=== PATIENT | female | born 1955 | race Caucasian/White ===

== ENCOUNTER → 2018-08-03 | Outpatient (CLI) | payer MEDICARE, OTHER ==
[~2018-08-03] MED LIST: ALPRAZOLAM 0.50.5 M1; CALCIUM 500 +1 EAC5; CALCIUM OYSTER500 MG; CLONAZEPAM 1 MG1 M1; EFFEXOR XR150 MG; FISH OIL 1,001000 M1; FISHOIL; LEVOTHROID125 MCG; LEVOTHROID150 MC1; LISINOPRIL-HCT1 EAC2; MAGNESIUM250 M1; MEDROLDOSEPACK PO; MULTIVITAMINS1 EAC7; ONE-A-DAY WOMENS; PRAVACHOL40 MG; PREDNISONE 20 M20 MG PO; PRISTIQ100 MG; PROMETHAZINE-D120 ML PO; RESTORIL30 MG; VENTOLIN HFA INH8 GM IH; VITAMIN D 5050000 I1; XOPENEX HF1 UDINHALE; ZANTAC 150MG T150 M1; ZESTORETIC 20-1 EAC1; ZPAK
== END ==
LOC: M.RAD 11:45
DX: R06.02 Shortness of breath (principal); R53.83 Other fatigue

== ENCOUNTER → 2019-01-31 | Outpatient (CLI) | payer MEDICARE, OTHER | LOC: M.RAD 14:27 | DX: M47.816 Spondylosis without myelopathy or radiculopathy, lumbar region (principal); M51.36 Other intervertebral disc degeneration, lumbar region; M12.88 Other specific arthropathies, not elsewhere classified, other specified site; M41.86 Other forms of scoliosis, lumbar region; I70.0 Atherosclerosis of aorta ==

== ENCOUNTER → 2019-02-07 | Outpatient (CLI) | payer MEDICARE, OTHER | LOC: M.RAD 14:16 | DX: M47.812 Spondylosis without myelopathy or radiculopathy, cervical region (principal); M54.6 Pain in thoracic spine; R29.890 Loss of height ==

== ENCOUNTER → 2019-07-20 | Outpatient (CLI) | payer MEDICARE, OTHER | LOC: M.RAD 11:35 | DX: J18.8 Other pneumonia, unspecified organism (principal); R05 Cough; R91.8 Other nonspecific abnormal finding of lung field ==

== ENCOUNTER → 2019-07-21 | Outpatient (CLI) | payer MEDICARE, OTHER | LOC: M.ULTRA 13:40 | DX: R22.1 Localized swelling, mass and lump, neck (principal) ==

== ENCOUNTER → 2019-08-03 | Outpatient (CLI) | payer MEDICARE, OTHER ==
--- NOTE | 2019-08-11 11:07 | PATH ---
[address] [address] PATHOLOGY RPT PROCEDURE Name: LOUIE GERBER Room: [facility]#: [id number] Admission: 08/03/19 Date of : 51 Discharge: Report #: [id number] Path Case #: [id number] [facility] Accession Number: [id number] . 01 Material submitted: . lymph node - RIGHT SUPRACLAVICULAR LYMPH NODE. Modifiers: right . 01 Clinical history: . 3.45 x 3.05 x 2.12 cm . 02 Diagnosis: Right supraclavicular lymph node, image-guided core biopsies: - POORLY-DIFFERENTIATED ADENOCARCINOMA. (SEE COMMENT) . (HUGO:gunnar; 08/08/2019) . . . Special studies report received from [facility], [address] [place] [address], [address], [place], [address], on case [id number], labeled with their number [id number], dated 08/05/2019. . Flow Cytometry: Hematologic Neoplasia Assessment . Clinical History None given . Indication for Study Evaluation for hematolymphoid neoplasia . Specimen Lymph Node, Right Supraclavicular . Viability 42% (7AAD exclusion) . Interpretation Lymph Node, Right Supraclavicular: - In the sample analyzed, there is no evidence for a B-cell lymphoma (limited study). . Comments Hodgkin lymphoma and some large cell lymphomas cannot be categorically excluded by flow cytometric analysis. A limited panel of antibodies was performed due to low cell yield. Correlation with the morphologic findings and other clinical data is recommended. . Results should be interpreted with caution due [place] [address] PATHOLOGY RPT PROCEDURE Name: MERON GERBERVICTOR M Tubbs Room: [facility]#: [id number] Admission: 08/03/19 Date of : 51 Discharge: Report #: [id number] Path Case #: [id number] specimen (42%). . . Populations Analyzed Lymphocytes: 3% A limited panel of antibodies (kappa, lambda, CD3, CD4, CD5, CD8, CD10, CD19, CD20, CD38, CD45, and CD57) was performed due to low cell yield. There is a mixed population of rare B-lymphocytes (0.1%) and T-lymphocytes (1.9%). No B-cell surface light chain restriction is detected. T-cells express CD3 and CD5. Other cunningham T-cell antigens are not evaluated. The CD4:CD8 ratio is 1:1. CD45 Negative 97% No significant reactivity with the markers tested Events/Debris: (may represent degenerated cells, unlysed red blood cells, debris, etc.) . Morphologic Evaluation A slide was reviewed for quality improvement analyst purposes only. . Specimen Description Due to low cell count, the lab is unable to provide an accurate cell yield. A limited panel of antibodies was performed. Due to a low cellular viability, an average of 790 viable events were acquired per tube. Flow cytometry data derived from an acquisition with less than 10,000 viable events needs to be interpreted within the context of all clinical, laboratory, and morphologic data available. . Reagent(s) Used CD3, CD4, CD5, CD8, CD10, CD19, CD20, CD38, CD45, CD57, kappa, lambda . at [facility]. Simeon Zavala MD Hematopathologist . . Intended Use Flow cytometry is optimally used to immunophenotypically characterize abnormal populations when they are detected. Negative flow cytometry results do not exclude lymphoma or neoplasia. Possible false negative flow cytometry results may occur in, but are not limited to, the following: neoplastic cells in Hodgkin lymphoma are not typically adequately represented by routine clinical flow cytometry; neoplastic cells may be lost or inadequately represented due to degeneration, sample processing, sampling artifact, or patchy involvement; plasma cells are typically underrepresented by flow cytometry; immature cells/blasts may be underrepresented due to hemodilution; myeloproliferative disorders and low grade myelodysplasia may not have immunophenotypic abnormalities or increased blasts. Correlation with all available clinical, laboratory, [place] [address] PATHOLOGY RPT PROCEDURE Name: LOUIE GERBER [id number] Admission: 08/03/19 Date of : 51 Discharge: Report #: [id number] Path Case #: [id number] morphologic data is always necessary to assess for the possibility of false negative flow cytometry results and to establish a diagnosis. Each marker in this analysis was used to assess for potential antigenic abnormalities or to evaluate detected abnormalities. . Any image or images that accompany this report are small business representative images only and should not be used to render a diagnosis. . Disclaimer(s) This test was developed and its performance characteristics determined by [employer]. It has not been cleared or approved by the Food and Drug Administration. . Performing Labs This test was performed at [facility]. at [address], [place], [address] - Bag Liner: Ricci Taylor MD. [facility] is a business unit of [facility] a wholly-owned subsidiary of [employer]. . For inquiries, the physician may contact Lab: [phone] . A complete copy of the report is on file. . Professional services performed by [facility] at [address], [place] [address]. Technical services performed by [facility] at [address], [place] [address]. . (HUGO:susanna 08/07/2019) . [facility] 08/08/2019 1133 Local . 02 Comment: All of the cores show sheets of malignant cells consistently having a plasmacytoid appearance with pleomorphic ovoid nuclei showing large nucleoli and abundant nuclear pseudoinclusions and lightly eosinophilic cytoplasm noted to occasionally have vacuoles with wispy wayne material likely representing intracellular mucin (signet rings). Focal tumor necrosis is present and the malignant cells are within desmoplastic stroma without definite recognizable residual lymph node. . A panel of properly-controlled immunohistochemical stains performed on A1 show the malignant cells to have the following characteristics: . CK7: Positive CK20: [place] [address] PATHOLOGY RPT PROCEDURE Name: KATHELOUIE Tubbs Room: [facility]#: [id number] Admission: 08/03/19 Date of : 51 Discharge: Report #: [id number] Path Case #: [id number] TTF-1: Negative Napsin: Negative Thyroglobulin: Negative CDX2: Negative PURVI-3: Negative Estrogen receptor: Negative CEAp: Patchy positive PAX 8: Negative Vimentin: Negative . 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 The immunohistochemical findings of negative TTF-1 and Thyroglobulin supports this to not be a thyroid neoplasm. . Upon discussion with Dr. 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 Preliminary findings relayed to Dr. Tenorio nurse practitioner, Ernestina Cheung, at approximately 10:55 on 08/04/2019. . Results of specimen submitted for flow cytometry are noted above. Reviewed with Dr. Blanca Ahuja who agrees with the diagnosis. . (HUGO:mml; 08/08/2019) . 02 Addendum: . Special studies report received from [facility], [address] [place] [address], [address], [place], [address], on case [id number], labeled with their number [id number], dated 08/10/2019. . PD-L1 Immunohistochemistry Analysis . Body Site: Lymph node, right supraclavicular (biopsy). Specimen Received: 1 paraffin block labeled "[id number]". Fixative: 10% Neutral Buffered Formalin. . Clinical History Poorly-differentiated adenocarcinoma (clinical suspicion of a lung primary, per submitted documentation). . Results Table PD-L1 - KATHY (R) Tumor Proportion Interpretation [id number] 2% Expression . [place] [address] PATHOLOGY RPT PROCEDURE Name: LOUIE GERBER Room: [facility]#: [id number] Admission: 08/03/19 Date of : 51 Discharge: Report #: [id number] Path Case #: [id number] PD-L1 protein expression is determined by using the Tumor Proportion Score (TPS), which is the percentage of at least 100 viable tumor cells showing complete or partial membrane staining at any intensity. . TPS less than 1%: No Expression . TPS greater than or equal to 1%: Expression - Eligible for KEYTRUDA (pembrolizumab) monotherapy. . TPS greater than or equal to 50%: High Expression - Eligible for KEYTRUDA (pembrolizumab) monotherapy. . Note: PD-L1 expression level TPS greater than or equal to 50% may be of interest but does not determine eligibility for KEYTRUDA monotherapy. . at [facility]. Chung Berger M.D. . Tests PD-L1 IHC Analysis . Intended Use: PD-L1, 22C3 pharmDx is FDA approved for in vitro diagnostic use as a qualitative immunohistochemical assay using Monoclonal Mouse Anti-PD-L1, Clone 22-C3 intended for use in the detection of PD-L1 in formalin-fixed paraffin-embedded (FFPE) non-small cell lung cancer (NSCLC) using the [employer] EnVision FLEX visualization system on [employer] Link 48. PD-L1 22C3 pharmDx is indicated as an aid in identifying NSCLC patients for treatment with KEYTRUDA (pembrolizumab) monotherapy. See the KEYTRUDA product label for specific clinical circumstances guiding PD-L1 testing. PD-L1, 22C3 pharmDx is a trademark of [employer] an [employer]. . References: Nolan TS, Roger Y-L, Madeline I, et al: Pembrolizumab versus chemotherapy for previously untreated, NQ-R0-gxdyazdijy, locally advanced or metastatic zrr-cwnkp-uptn lung cancer (KEYNOTE-042): a randomised, open-label, controlled, phase 3 trial. Lancet 2018August 18; Online18 1-12. . Millicent RS, Tang P, Brigitte D-W, et al: Pembrolizumab versus docetaxel for previously treated, LZ-E5-saovmxik, advanced vfq-ntkqr-fbeb lung cancer (KEYNOTE-010): a randomized controlled trial. Lancet 2015 May 04; Online(34) 7857-7. . Klarissa MISHRA, Kris NA, Bita R, et al: Pembrolizumab for the Treatment of Ibb-Spjxn-Fxal Lung Cancer. N Engl J Med 2015 October 04; 372:2826-0007. . Please contact [facility] for additional references. . [address] [place] [address] PATHOLOGY RPT PROCEDURE Name: LOUIE GERBER Room: [facility]#: [id number] Admission: 08/03/19 Date of : 51 Discharge: Report #: [id number] Path Case #: [id number] Disclaimer This Test was performed by [facility] at [facility], [address]. [facility] is a business unit of [facility] a wholly-owned subsidiary of [employer]. . . Any image(s) that accompany this report is/are a small business representative image(s) only and should not be used to render a diagnosis. . This interpretation is contingent on the specimen and the clinical information received. . Known positive cells or tissues are employed with each test and examined to ensure positivity. Positive and negative internal controls, if present, react appropriately. . This analysis is an adjunct to the evaluation of the referring physician and does not represent a final diagnosis. . The immunohistochemistry tests performed at [facility] were validated on tissue fixed in 10% neutral buffered formalin. The performance characteristics of the tests performed on tissue processed in other fixatives is not known. . This assay has not been validated on decalcified tissues. Results should be interpreted with caution if this specimen was decalcified given the likelihood of decreased staining or false negativity on decalcified specimens. . A complete copy of the report is on file. . Professional services performed by [facility] at [address], [place] [address]. Technical services performed by [employer]. at [address], [place] [address]. . (HUGO:am 08/11/2019) . . . [place]/08/11/2019 Addendum Electronically Signed by Blake Aponte MD, Pathologist . 02 Electronically signed: . Blake Aponte MD, Pathologist NPI- [id number] . [address] [place] [address] PATHOLOGY RPT PROCEDURE Name: LOUIE GERBER Room: [facility]#: [id number] Admission: 08/03/19 Date of : 51 Discharge: Report #: [id number] Path Case #: [id number] Gross description: . The specimen is received in formalin, labeled "Louie Gerber, right supraclavicular lymph node". Received are four needle cores of pale sandoval soft tissue ranging in length from 0.7 to 1.5 cm in length by 0.1 cm in diameter. The specimen is submitted entirely in cassette A1 through A3. A portion of the specimen is placed in RPMI solution and is forwarded on for flow cytometry studies. (CAA; 08/03/2019) QAC/QAC 08/03/2019 1727 Local . 02 Pathologist provided ICD-10: C77.0 . 02 CPT . 678541, R16998, W61109 Specimen Comment: A courtesy copy of this report has been sent to [phone] Specimen Comment: Report sent to Performed at: [address] [facility], [place], [place] [id number] MD Irvin Elizabeth MD Phone: [phone] Performed at: [address] [address] [address], [place], [place] [id number] MD Blake Aponte MD Phone: [phone]
== END | disposition home or self-care (01) ==
LOC: M.ULTRA 08:30
DX: R22.1 Localized swelling, mass and lump, neck (principal); C96.Z Other specified malignant neoplasms of lymphoid, hematopoietic and related tissue; F17.210 Nicotine dependence, cigarettes, uncomplicated; Z98.890 Other specified postprocedural states; Z79.899 Other long term (current) drug therapy